=== PATIENT | female | born 1960 | race Caucasian/White ===

== ENCOUNTER 2018-08-26 16:03 | Emergency (ER) | payer MEDICAID ==
[~2018-08-26] VITALS: Ht 152.4 cm; Wt 98.0 kg
[~2018-08-26 16:03] MED LIST: ANT12.5 PO; ASPIR 8181 MG; BUS5 PO; CIPROFLOXACIN500 MG; CLARITIN10 MG; COZAAR100 MG; ESG PO; GLIPIZIDE10 MG; GLU5 PO; GLU500 PO; GLUCOVANCE1 TA2; LANTUS SOLOS100 U/M1; LOVASTATIN40 MG
[2018-08-26 16:22] VITALS: Ht 152.4 cm; Wt 98.0 kg
[2018-08-26 19:06] LABS: CARBON DIOXIDE 22.4 mmol/L (21-32); CHLORIDE SERUM 103 mmol/L (98-107); CREATININE SERUM 0.8 mg/dL (0.6-1.0); GFR1 > 60 mL/min; GLUCOSE SERUM 231 mg/dL (74-106); POTASSIUM SERUM 3.6 mmol/L (3.5-5.1); SODIUM SERUM 137 mmol/L (136-145)
[2018-08-26 19:07] LABS: BASOPHIL % 0.3 % (0-2); PLATELET COUNT 186 x10^3mcL (130-400); RED CELL DISTRIBUTION WIDTH 11.9 % (11.5-14.5)
[2018-08-26 19:10] LABS: ALBUMIN 3.5 g/dL (3.4-5.0); ALKALINE PHOSPHATASE 89 U/L (46-116); ALT/SGPT 39 U/L (14-59); AMYLASE 50 U/L (25-115); AST/SGOT 24 U/L (15-37); BILIRUBIN TOTAL 0.79 mg/dL (0.20-1.00); LIPASE 198 IU/L (73-393); TOTAL PROTEIN, SERUM 7.5 g/dL (6.4-8.2)
[2018-08-26 21:11] VITALS: BP 129/70
== END 2018-08-26 21:11 | disposition home or self-care (01) ==
LOC: ED 16:03
PROVIDERS: Emergency Medicine
DX: T62.91XA Toxic effect of unspecified noxious substance eaten as food, accidental (unintentional), initial encounter (principal); R11.2 Nausea with vomiting, unspecified; R19.7 Diarrhea, unspecified; S40.011A Contusion of right shoulder, initial encounter; E11.9 Type 2 diabetes mellitus without complications; I10 Essential (primary) hypertension; X58.XXXA Exposure to other specified factors, initial encounter; Y93.89 Activity, other specified; Y92.89 Other specified places as the place of occurrence of the external cause; Y99.8 Other external cause status; Z88.0 Allergy status to penicillin
CPT/HCPCS: 82962; J1885; J2405; J3010; Q0092

== ENCOUNTER 2019-04-16 13:15 | Emergency (ER) | payer MEDICAID ==
[~2019-04-16] VITALS: Ht 160 cm; Wt 97.5 kg
[2019-04-16 13:22] VITALS: Ht 160 cm; Wt 97.5 kg
[2019-04-16 14:34] LABS: BASOPHIL % 1.2 % (0-2); PLATELET COUNT 208 x10^3mcL (130-400); RED CELL DISTRIBUTION WIDTH 11.9 % (11.5-14.5)
[2019-04-16 14:40] LABS: CALCIUM 8.9 mg/dL (8.5-10.1); CARBON DIOXIDE 26.3 mmol/L (21-32); CHLORIDE SERUM 102 mmol/L (98-107); CREATININE SERUM 0.7 mg/dL (0.6-1.0); GFR1 > 60 mL/min; GLUCOSE SERUM 323 mg/dL (74-106); POTASSIUM SERUM 3.9 mmol/L (3.5-5.1); SODIUM SERUM 135 mmol/L (136-145)
[2019-04-16 17:10] VITALS: BP 138/69
== END 2019-04-16 17:10 | disposition home or self-care (01) ==
LOC: ED 13:15
PROVIDERS: Student in an Organized Health Care Education/Training Program
DX: R07.89 Other chest pain (principal); R06.02 Shortness of breath; I10 Essential (primary) hypertension; E11.9 Type 2 diabetes mellitus without complications; Z88.0 Allergy status to penicillin
CPT/HCPCS: 36415; 83880; 85378; Q0092

== ENCOUNTER 2019-10-06 15:21 | Emergency (ER) | payer MEDICAID ==
[~2019-10-06] VITALS: Ht 157.5 cm; Wt 102.1 kg
[2019-10-06 15:42] VITALS: Ht 157.5 cm; Wt 102.1 kg
[2019-10-06 19:33] LABS: BASOPHIL % 1.1 % (0-2); PLATELET COUNT 224 x10^3mcL (130-400); RED CELL DISTRIBUTION WIDTH 11.9 % (11.5-14.5)
[2019-10-06 19:55] LABS: CALCIUM 9.2 mg/dL (8.5-10.1); CHLORIDE SERUM 103 mmol/L (98-107); CREATININE SERUM 0.8 mg/dL (0.6-1.0); GFR1 > 60 mL/min; GLUCOSE SERUM 211 mg/dL (74-106); POTASSIUM SERUM 4.4 mmol/L (3.5-5.1); SODIUM SERUM 140 mmol/L (136-145)
[2019-10-06 20:01] LABS: ALBUMIN 3.8 g/dL (3.4-5.0); ALKALINE PHOSPHATASE 101 U/L (46-116); ALT/SGPT 61 U/L (14-59); AST/SGOT 27 U/L (15-37); BILIRUBIN TOTAL 0.41 mg/dL (0.20-1.00); TOTAL PROTEIN, SERUM 8.1 g/dL (6.4-8.2)
[2019-10-06 22:53] LABS: microscopic required? NO
[2019-10-06 23:07] LABS: UA SPECIFIC GRAVITY 1.025 (1.005-1.035); urine erythrocyte NEGATIVE (NEGATIVE)
[2019-10-06 23:35] VITALS: BP 125/76
== END 2019-10-06 23:35 | disposition home or self-care (01) ==
LOC: ED 15:21
PROVIDERS: Emergency Medicine
DX: M47.817 Spondylosis without myelopathy or radiculopathy, lumbosacral region (principal); M54.2 Cervicalgia; E11.9 Type 2 diabetes mellitus without complications; I10 Essential (primary) hypertension; Z88.0 Allergy status to penicillin
CPT/HCPCS: J1885; Q0092